=== PATIENT | male | born 2000 | race Caucasian/White ===

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

== ENCOUNTER 2021-04-19 11:39 | Emergency (ER) | payer MEDICAID ==
[~2021-04-19] VITALS: Ht 167.6 cm; Wt 69.0 kg
[2021-04-19 12:29] VITALS: BP 131/89
[2021-04-19] MEDS ORDERED: ONDA-188 SL (12:43)
[2021-04-19] MEDS ORDERED: LOPE1TAB14 PO (12:43)
--- NOTE | 2021-04-19 13:16 | NUR ---
Patient discharged with v/s stable. Written and verbal after care instructions given and explained. Patient alert, oriented and verbalized understanding of instructions. Ambulatory with steady gait. All questions addressed prior to discharge. ID band removed. Patient advised to follow up with PMD. Rx of ZOFRAN AND IMODIUM given. Patient educated on indication of medication including possible reaction and side effects. Opportunity to ask questions provided and answered.
[2021-04-19 13:20] VITALS: BP 142/65
== END 2021-04-19 13:16 | disposition home or self-care (01) ==
LOC: MED 11:39
DX: A09 Infectious gastroenteritis and colitis, unspecified (principal)
CPT/HCPCS: 99283

== ENCOUNTER 2022-05-29 08:37 | Emergency (ER) | payer MEDICAID ==
[~2022-05-29] VITALS: Ht 165.1 cm; Wt 65.8 kg
[~2022-05-29 08:37] MED LIST: LOPE1TAB14 PO; ONDA-188 SL
[2022-05-29 08:52] VITALS: BP 131/91
--- NOTE | 2022-05-29 09:40 | NUR ---
21/m walked in c/o blood in stool x 2 days. denies any abd pain. reports mild nausea. pmh: denies
[2022-05-29] MEDS ORDERED: ATRO1TAB PO (10:38)
== END 2022-05-29 10:40 | disposition home or self-care (01) ==
LOC: MED 08:37
DX: R19.7 Diarrhea, unspecified (principal); Z79.899 Other long term (current) drug therapy
CPT/HCPCS: 99283

== ENCOUNTER 2023-08-05 22:40 | Emergency (ER) | payer MEDICAID ==
[~2023-08-05] VITALS: Ht 167.6 cm; Wt 68.0 kg
[~2023-08-05 22:40] MED LIST changes: +ATRO1TAB PO
[2023-08-05 23:31] VITALS: BP 124/83; PULSE 121; RESP 20; TEMP 97.7; O2SAT 100
[2023-08-06 01:31] VITALS: BP 126/83; PULSE 118; RESP 20; TEMP 97.7
[2023-08-06 03:44] LABS: BASOPHILS % (AUTO) 0.3 % (0.0-2.0); EOSINOPHILS % (AUTO) 0.1 % (0.0-4.0); HEMATOCRIT 47.5 % (36-52); LYMPHOCYTES # (AUTO) 0.8 K/uL (2.0-11.5); LYMPHOCYTES % (AUTO) 5.6 % (20.5-51.1); MEAN CORPUSCULAR HEMOGLOBIN 29 pg (27-31); MEAN CORPUSCULAR HGB CONC 36 g/dL (33-37); MEAN CORPUSCULAR VOLUME 81.5 fL (80-94); MONOCYTES # (AUTO) 0.9 K/uL (0.8-1.0); MONOCYTES % (AUTO) 5.7 % (1.7-9.3); NEUTROPHILS # (AUTO) 13.5 K/uL (1.8-7.7); NEUTROPHILS % (AUTO) 88.3 % (42.2-75.2); PLATELET COUNT (AUTO) 400 K/uL (140-450); RED BLOOD CELL COUNT(AUTO) 5.82 MIL/uL (4.20-6.10); RED CELL DISTRIBUTION WIDTH 13.2 % (11.6-13.7); WHITE BLOOD COUNT (AUTO) 15.2 K/uL (4.8-10.8)
[2023-08-06] MEDS: NACL 0.9% 1,000 ML IV ONE (03:48)
[2023-08-06] MEDS: ONDANSETRON 4 MG/2 ML VIAL IVP ONE (03:49)
[2023-08-06 03:55] LABS: ANION GAP 18.1 (8-16); CALCIUM 10.2 mg/dL (8.5-10.1); CARBON DIOXIDE 24.7 mmol/L (21-32); CREATININE 1.1 mg/dL (0.6-1.3); POTASSIUM 3.8 mmol/L (3.5-5.1)
[2023-08-06 04:01] LABS: ALBUMIN 5.2 g/dL (3.4-5.0); BILIRUBIN,DIRECT 0.2 mg/dL (0.0-0.3); TOTAL PROTEIN, SERUM 9.4 g/dL (6.4-8.2)
[2023-08-06 04:03] VITALS: O2SAT 100
[2023-08-06] MEDS ORDERED: BEN10 PO (04:20)
[2023-08-06] MEDS ORDERED: ONDA-188 SL (04:20)
== END 2023-08-06 04:35 | disposition home or self-care (01) ==
LOC: MED 22:40
DX: R11.10 Vomiting, unspecified (principal); R19.7 Diarrhea, unspecified
CPT/HCPCS: 36415; 80048; 80076; 83690; 85025; 96361; 96374; 99283; J2405; J7030